=== PATIENT | female | born 2000 | race Hispanic/Latino ===

== ENCOUNTER 2020-11-17 21:05 | Emergency (ER) | payer SELFPAY ==
[2020-11-17] MEDS ORDERED: ACETAMINOPHEN-CODEINE 300/30MG TAB ONE (22:50)
== END 2020-11-17 23:27 | disposition home or self-care (01) ==
LOC: EDH 21:05
DX: S40.021A Contusion of right upper arm, initial encounter (principal); W22.8XXA Striking against or struck by other objects, initial encounter; Y93.89 Activity, other specified; Y92.89 Other specified places as the place of occurrence of the external cause; Y99.8 Other external cause status
CPT/HCPCS: 73110; 73130; 99152